=== PATIENT | female | born 1990 | race Caucasian/White ===

== ENCOUNTER 2016-09-01 14:13 | Emergency (ER) ==
[2016-09-01] MEDS ORDERED: ZOFRAN ODT PO ONE (15:14)
--- NOTE | 2016-09-01 15:14 | PROVIDER DOCUMENTATION ---
HPI-General Adult - General Chief Complaint: Nausea Stated Complaint: NAUSEA/NEAR SYNCOPE (9 WKS PREG) Time Seen by Provider: 09/01/16 14:35 Source: patient Allergies/Adverse Reactions: Patient Allergies Allergy/AdvReac Type Severity Reaction Status Date / Time No Known Allergies Allergy Verified 09/01/16 14:24 Home Medications: Home Medication List Medication Instructions Recorded Confirmed Last Taken Type Ondansetron Odt [Zofran 8Mg Odt] 8 mg PO Q8H PRN PRN #20 tablet 09/01/16 Unknown Rx Promethazine [Phenergan] 12.5 mg W[place] Q6H PRN PRN #20 supp 09/01/16 Unknown Rx - History of Present Illness -Gen Adult Nature of Presenting Problems: 26 y/o WF c/o nausea x 3 days, dizziness x 1 day. Pt states 9 weeks by dates. Reports has not seen an OB yet; medicaid just approved yesterday. States no abd. pain, spotting, urinary sxs. Reports that she has decreased oral intake and dizzy with standing. Review of Systems - Adult - REVIEW OF SYSTEMS - ADULT Constitutional: reports: no symptoms reported. denies: chills, fever Eyes: reports: no symptoms reported. denies: blurred vision, double vision Ears, Nose, Mouth & Throat: reports: no symptoms reported. denies: ear pain, nose pain Cardiovascular: reports: no symptoms reported. denies: chest pain, palpitations Respiratory: reports: no symptoms reported. denies: dyspnea on exertion, shortness of breath Gastrointestinal: reports: see HPI, nausea. denies: abdominal pain, diarrhea, vomiting Genitourinary: reports: no symptoms reported. denies: dysuria, frequency Musculoskeletal: reports: no symptoms reported. denies: joint pain, joint swelling Integumentary: reports: no symptoms reported. denies: nail changes, rash Neurological: reports: see HPI, dizziness/vertigo. denies: numbness, paresthesia, syncope Psychiatric: reports: no symptoms reported Endocrine: reports: no symptoms reported. denies: cold intolerance, heat intolerance Hematologic/Lymphatic: reports: no symptoms reported. denies: easy bruising, prolonged bleeding Allergic/Immunologic: reports: no symptoms reported All Other Systems: Reviewed and Negative Past History - Adult - PAST MEDICAL HISTORY-ADULT Review of Records: reports: Nursing Assessment Review, Medications Reviewed - SOCIAL HISTORY Smoking: denies Physical Exam-General - PHYSICAL EXAM-ADULT Initial Vital Signs Reviewed: Yes - CONSTITUTIONAL General Appearance: alert, mild distress - EYES Eyes: PERRL/EOMI, pink conjunctivae. negative: EOM palsy - HEAD, EARS, NOSE, MOUTH & THROAT HENMT: normocephalic/atraumatic, moist mucous membranes - NECK Neck: supple, normal inspection - RESPIRATORY Respiratory: lungs clear, normal breath sounds. negative: crackles, rales, rhonchi, stridor, wheezing - CARDIOVASCULAR Cardiovascular: regular rate, rhythm. negative: bradycardia, tachycardia - GASTROINTESTINAL (ABDOMEN) Abdominal Exam: normal bowel sounds, non tender, soft. negative: distended, guarding, rigid, rebound - MUSCULOSKELETAL Back Exam: normal inspection Extremity: normal gait - SKIN Integumentary: normal color, normal turgor, warm/dry - NEUROLOGIC Neurologic: negative: aphasia - PSYCHIATRIC Psych/Mental Status: normal mood/affect, normal thought content, normal thought process, oriented x 3 Departure - Departure Time of Disposition Order: 16:13 DIAGNOSIS: Mild dehydration, Dizziness Disposition: HOME 01 Certified Medical Emergency: Emergent Condition: Stable Additional Instructions: Take medications as directed. Follow up with OB for further management. Drink plenty of fluids. ED Follow Up Instructions: You have been treated by a care provider in the Emergency Department. These instructions are being provided to you so you can have an understanding of how to care for yourself upon discharge. Upon discharge from the Emergency Department, you are responsible for making arrangements for follow-up care by a physician of your choice. Take all prescribed medications as directed. Return to the Emergency Department immediately for any new or worsening symptoms. You may call the Physician Referral phone number at [phone] to obtain a list of Physicians who are taking new patients. Prescriptions: Promethazine [Phenergan] 12.5 mg WV Q6H PRN PRN #20 supp PRN Reason: Nausea Ondansetron Odt [Zofran 8Mg Odt] 8 mg PO Q8H PRN PRN #20 tablet PRN Reason: Nausea Referrals: None,PCP [Primary Care Provider] - Cj Figueroa MD [STAFF PHYSICIAN] - Attestation - Physician/ SKYLAR Attestation Patient care was provided by Advanced Practice Provider:: Yes Advanced Practice Provider:: Kaylan Montanez Advanced Practice Provider documentation review:: The Mid-level provider documentation, treatment plan and medical decision making was reviewed by the physician who agrees with all treatment and medical decision making by the MLP.
[2016-09-01 15:47] LABS: URINE CULTURE PL NEEDED? NO; URINE SOURCE CLEAN CATCH
[2016-09-01 15:49] VITALS: BP 113/77
[2016-09-01 15:58] LABS: BILIRUBIN URINE NEGATIVE (NEGATIVE); BLOOD URINE NEGATIVE (NEGATIVE); CLARITY VERY CLOUDY (CLEAR); COLOR YELLOW; GLUCOSE URINE NEGATIVE (NEGATIVE); LEUKOCYTES URINE NEGATIVE (NEGATIVE); NITRITE URINE NEGATIVE (NEGATIVE); PROTEIN URINE NEGATIVE (NEGATIVE); UROBILINOGEN URINE NORMAL
[2016-09-01 16:00] LABS: URINE EPITHELIAL CELLS >10 /HPF (<10)
== END 2016-09-01 16:28 | disposition home or self-care (01) ==
LOC: P.ED 14:13
DX: O26.891 Other specified pregnancy related conditions, first trimester (principal); E86.0 Dehydration; R42 Dizziness and giddiness; R11.0 Nausea; R55 Syncope and collapse; Z3A.09 9 weeks gestation of pregnancy
CPT/HCPCS: 81001; 93005; 99283

== ENCOUNTER 2016-09-20 19:54 | Emergency (ER) | payer OTHER ==
[2016-09-20 21:47] LABS: MANUAL DIFF NEEDED? NO
[2016-09-20 21:50] LABS: BASO% 0.2 % (0.0-0.8); EOS# 0.14 X1000 (0.0-0.7); EOS% 1.2 % (0.0-10.0); HEMATOCRIT 36.6 % (37.0-47.0); HEMOGLOBIN 12.5 g/dL (12.0-16.0); IMM GRAN# 0.04 X1000 (0.0-0.04); IMM GRAN% 0.3 % (0.0-0.5); LYMPH# 2.66 X1000 (1.2-3.4); LYMPH% 22.5 % (20.5-51.1); MCH 28.6 PG (27-31); MCHC 34.2 g/dL (33-37); MCV 83.8 FL (81-99); MONO# 0.71 X1000 (0.11-0.59); MPV 9.4 FL (7.4-10.4); NEUT% 69.8 % (42.2-75.2); PLT 353 X1000 (130-400); RBC 4.37 XMIL (4.2-5.4)
[2016-09-20 21:53] LABS: URINE SOURCE CLEAN CATCH
[2016-09-20 22:09] LABS: BILIRUBIN URINE NEGATIVE (NEGATIVE); BLOOD URINE NEGATIVE (NEGATIVE); CLARITY SL. CLOUDY (CLEAR); COLOR YELLOW; GLUCOSE URINE NEGATIVE (NEGATIVE); LEUKOCYTES URINE TRACE (NEGATIVE); NITRITE URINE NEGATIVE (NEGATIVE); PROTEIN URINE NEGATIVE (NEGATIVE); SP GRAVITY URINE 1.025; UROBILINOGEN URINE NORMAL
[2016-09-20 22:15] LABS: URINE CULTURE PL NEEDED? YES; URINE EPITHELIAL CELLS <10 /HPF (<10); URINE WBC <10 /HPF (<10)
[2016-09-20 22:16] LABS: AGAP 14; ALBUMIN 4.2 g/dL (3.5-5.0); ALKALINE PHOSPHATASE 78 U/L (32-104); AMYLASE 40 U/L (20-200); BUN 8 mg/dL (8-22); CALCIUM 9.5 mg/dL (8.8-10.2); CHLORIDE 100 mmol/L (98-107); COSMO 270; GOT 24 U/L (10-30); GPT 11 U/L (10-36); LIPASE 24 U/L (13-60); POTASSIUM 3.9 mmol/L (3.5-5.1); SODIUM 136 mmol/L (136-145); TCO2 23 mmol/L (25-35); TOTAL PROTEIN 7.5 g/dL (6.3-8.3)
--- NOTE | 2016-09-20 23:02 | PROVIDER DOCUMENTATION ---
HPI-Abdominal Pain/GI Problem - General Chief Complaint: Abdominal Pain Stated Complaint: 9WKS PREG DULL IN ABD Time Seen by Provider: 09/20/16 21:29 Allergies/Adverse Reactions: Patient Allergies Allergy/AdvReac Type Severity Reaction Status Date / Time loratadine [From Claritin] Allergy NAUSEA/VOMI Verified 09/20/16 20:33 TING Home Medications: Home Medication List Medication Instructions Recorded Confirmed Last Taken Type Nitrofurantoin Monohyd/M-Cryst 100 mg PO BID #20 capsule 09/20/16 Unknown Rx [Macrobid 100 mg Capsule] Vit No.78/Iron/FA 1 tab PO DAILY 09/20/16 09/20/16 Unknown History [Prenatabs FA Tablet] - History of Present Illness-ABD Abdominal Pain Onset Location: reports: RUQ, RLQ Pain Radiation: reports: no radiation Quality of Pain: reports: cramping Severity in ED: reports: mild Onset/Duration: reports: this morning Timing: reports: gone now Activities at Onset: reports: none Modifying Factors: improves with: nothing Associated Symptoms: denies: chest pain, cough, fever/chills, nausea, vomiting Last BM: this morning Dark Stools Present?: reports: none noticed Rectal Bleeding: reports: none Rectal Pain: reports: none Emesis Description: reports: none Bruising or Bleeding Gums?: No Similar Symptoms Previously?: No Recently seen or treated by another doctor?: No Review of Systems - Adult - REVIEW OF SYSTEMS - ADULT Constitutional: denies: chills, fever, fatique Eyes: denies: discharge, double vision, redness Ears, Nose, Mouth & Throat: denies: ear pain, sinus problem, throat pain Cardiovascular: denies: chest pain, irregular heart rate, palpitations, syncope Respiratory: denies: cough, shortness of breath, wheezing Gastrointestinal: reports: abdominal pain. denies: diarrhea, nausea, vomiting Genitourinary: denies: dysuria, flank pain, hematuria Musculoskeletal: denies: back pain, muscle aches, neck pain Integumentary: denies: hives, itching, rash Neurological: denies: dizziness/vertigo, headache/migraines, numbness Psychiatric: denies: anxiety, depression, emotional problems All Other Systems: Reviewed and Negative Past History - Adult - PAST MEDICAL HISTORY-ADULT Review of Records: reports: Old Records Reviewed, Nursing Assessment Review, Medications Reviewed Major Childhood Illnesses: reports: denies history - PRIOR SURGERIES/PROCEDURES Surgical/Procedure History: reports: appendectomy, cholecystectomy - PRIOR HOSPITALIZATIONS Prior Hospitalizations: reports: none - IMMUNIZATION STATUS Childhood Immunizations: See Nurse Assessment Flu Vaccine: See Nurse Assessment - SOCIAL HISTORY Smoking: denies Substance Use: none/never Alcohol Use Frequency: sober (former use) Living Situation: family Physical Exam-General - PHYSICAL EXAM-ADULT Initial Vital Signs Reviewed: Yes - CONSTITUTIONAL General Appearance: appears well, alert, no apparent distress - EYES Eyes: PERRL/EOMI, pink conjunctivae, fundi clear, no AV nicking - HEAD, EARS, NOSE, MOUTH & THROAT HENMT: normocephalic/atraumatic, moist mucous membranes, normal ENT inspection, TMs normal, pharynx normal - NECK Neck: non-tender, full range of motion, supple, normal inspection - RESPIRATORY Respiratory: chest non-tender, lungs clear, normal breath sounds, no pleuratic chest pain, no respiratory distress, no accessory muscle use - CARDIOVASCULAR Cardiovascular: normal peripheral pulses, regular rate, rhythm, no edema, no gallop, no JVD, no murmur - GASTROINTESTINAL (ABDOMEN) Abdominal Exam: normal bowel sounds, non tender, soft, no organomegaly, no pulsatile mass - MUSCULOSKELETAL Back Exam: normal inspection, no CVA tenderness, no vertebral tenderness Extremity: normal range of motion, non-tender, normal gait - SKIN Integumentary: normal color, normal turgor, warm/dry - PSYCHIATRIC Psych/Mental Status: normal mood/affect, normal thought content, normal thought process, oriented x 3 Progress - ULTRASOUND (By Radiology) 1 US Study: other US Results: SUBCHORIONIC HEMORRHAGE Departure - Departure Time of Disposition Order: 23:52 DIAGNOSIS: Threatened UTI (urinary tract infection) Qualifiers: Urinary tract infection type: site unspecified Hematuria presence: without hematuria Qualified Code(s): N39.0 - Urinary tract infection, site not specified Disposition: HOME 01 Certified Medical Emergency: Emergent Condition: Good Additional Instructions: ED Follow Up Instructions: You have been treated by a care provider in the Emergency Department. These instructions are being provided to you so you can have an understanding of how to care for yourself upon discharge. Upon discharge from the Emergency Department, you are responsible for making arrangements for follow-up care by a physician of your choice. Take all prescribed medications as directed. Return to the Emergency Department immediately for any new or worsening symptoms. You may call the Physician Referral phone number at [phone] to obtain a list of Physicians who are taking new patients. Prescriptions: Nitrofurantoin Monohyd/M-Cryst [Macrobid 100 mg Capsule] 100 mg PO BID #20 capsule Attestation - Scribe Verification/Attestation Scribe:: Sukhi King Acting as Scribe for:: Den Keller Scribe documention review:: This chart was documented by a scribe and accurately reflects the service the provider performed and the decisions made by the provider.
[2016-09-21] MEDS ORDERED: MACROBID ONE (00:13)
[2016-09-21] MEDS ORDERED: MACROBID PO ONE (00:23)
[2016-09-21 00:25] VITALS: BP 135/91
--- NOTE | 2016-09-21 08:35 | Diag Imaging Result Document ---
PROCEDURE NAME: US ABDOMEN-COMPLETE - 09/20/2016 COMPLETE ABDOMINAL ULTRASOUND: COMPARISON: None available. FINDINGS: There has been a previous cholecystectomy. The common bile duct is normal in diameter. The pancreas is obscured due to bowel gas. The aorta is also obscured. The visualized portion of the IVC is grossly unremarkable. The liver, spleen, and kidneys are grossly unremarkable. IMPRESSION: Essentially unremarkable abdominal ultrasound status post cholecystectomy.
--- NOTE | 2016-09-21 08:37 | Diag Imaging Result Document ---
PROCEDURE NAME: US OBS COMPLETE < 14 WKS - 09/20/2016 OBSTETRIC ULTRASOUND: COMPARISON: None available. FINDINGS: There is a single viable intrauterine gestation. A pole, yolk sac, and gestational sac are identified. The cervix is closed. Adjacent to the gestational sac, there is a small fluid collection measuring up to 0.7 x 0.9 x 1.1 cm that may represent a small subchorionic hemorrhage. No gross anomalies are appreciated. The measured heart rate is 167 beats per minute. The gestational age by ultrasound is 8 weeks 5 days +/-5 days. There is a 1.6 cm simple-appearing left ovarian cyst. The ovaries are grossly unremarkable, otherwise. They exhibit normal Doppler flow. No solid adnexal masses are identified. No significant free fluid is identified. IMPRESSION: 1. Single viable intrauterine gestation with suggestion of a small adjacent subchorionic hemorrhage. Continued surveillance is recommended. 2. Small left ovarian cyst.
== END 2016-09-21 00:24 | disposition home or self-care (01) ==
LOC: P.ED 19:54
DX: O23.41 Unspecified infection of urinary tract in pregnancy, first trimester (principal); O20.0 Threatened abortion; O26.891 Other specified pregnancy related conditions, first trimester; R10.11 Right upper quadrant pain; R10.31 Right lower quadrant pain; Z3A.08 8 weeks gestation of pregnancy
CPT/HCPCS: 76700; 76801; 80053; 81001; 82150; 83690; 84702; 85025; 87088